=== PATIENT | male | born 1980 | race Caucasian/White ===

== ENCOUNTER 2017-03-12 17:17 | Emergency (ER) | payer BC ==
[~2017-03-12] VITALS: Ht 175.3 cm; Wt 143.1 kg
[~2017-03-12 17:17] MED LIST: NAPR500T PO
--- NOTE | 2017-03-12 17:37 | PHYS DOC ---
General Chief Complaint: SKIN RASH/ABSCESS Stated Complaint: REDDNESS Time Seen by MD: 17:34 Source: patient Exam Limitations: no limitations Problems: History of Present Illness Initial Comments Patient is 36 male to the ED with a rash. Patient states for the past 3 days he's been taking 2 new oopb-rok-xhkuxgl supplements one of which he knows is niacin. He states that he has had no difficulties past 3 days but today he has developed a whole body Itchy rash. He denies any cough or shortness of breath feeling of hoarseness or a lump in throat or sensation that his throat mouth or tongue or swelling. He has not noticed any dyspnea on exertion or wheeze but has simply come to the emergency department for relief from his itching. He has history of hypertension and denies any other ongoing medical problems. He denies immunosuppression and states he is normally healthy. Vital signs on arrival are unremarkable. Timing/Duration: 1 hour, getting worse Severity: severe Modifying Factors: improves with cold therapy, worse with medication Associated Symptoms: rash Allergies: Coded Allergies: No Known Drug Allergies (Unverified , 07/11/16) Past Medical History Medical History: hypertension Surgical History: noncontributory Social History Smoker: non-smoker Alcohol: none Drugs: none Review of Systems Constitutional: denies chills, denies fever, denies malaise (old who woke u) EENTM: denies ear pain, denies nose congestion ( the worst it is not coming back), denies throat swelling (vital tobacco on the images popped open of), denies mouth swelling Respiratory: denies cough (denies any other day and he said he passed and was given removal in the next), denies shortness of breath, denies stridor, denies wheezing Cardiovascular: denies chest pain, denies palpitations, denies syncope Gastrointestinal: denies abdominal pain, denies nausea, denies vomiting Musculoskeletal: denies back pain, denies joint swelling, denies neck pain Skin: see HPI Psychiatric/Neurological: denies headache, denies numbness, denies paresthesia (elevated ammonia [place] with your adenoids) Physical Exam General Appearance: WD/WN, mild distress Eyes: bilateral eye normal inspection, bilateral eye PERRL, bilateral eye EOMI Ear, Nose, Throat: hearing grossly normal, normal ENT inspection, normal pharynx (no soft tissue swelling noted) Neck: non-tender, supple Respiratory: lungs clear, normal breath sounds, no respiratory distress Cardiovascular: normal peripheral pulses, regular rate, rhythm Gastrointestinal: non tender, soft Back: no CVA tenderness, no vertebral tenderness Extremities: normal range of motion, non-tender, normal inspection 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 Currently his rash has nearly resolved she is feeling much better and he is requesting discharge she has a ride and is not driving. I discussed signs and symptoms to monitor urgent indications for return, as well as cessation of medications. I discussed the fact that niacin can give you similar symptoms by itself however those medications have to be considered an allergy until follow-up with his doctor. His questions were answered she expressed agreement and understanding with the treatment plan. As it is late pharmacies will be closing a 20 mg prednisone will be given by mouth prior to discharge. Departure Time of Disposition: 18:48 Disposition: 01 HOME, SELF-CARE Diagnosis: medication allergy Condition: IMPROVED Patient Instructions: Drug Allergy Additional Instructions: Discontinue the new ptlu-vrs-saemqmk medications. Off work through March 15, note given. Avoid strenuous activity and hot temperatures for optimal symptom control. Yhpp-rkp-exizzqy Pepcid 20 mg twice daily, Benadryl 25-50 mg every 6 hours while taking prednisone. No driving or operating machinery while taking Benadryl due to its sedation. Prescription: Prednisone Follow-up with your doctor on Tuesday if not better. Return to the ED with new or changing symptoms. REGINA WALSH DO Mar 12, 2017 17:37
[2017-03-12] MEDS ORDERED: IV NORMAL SALINE 1,000ML 1,000 ML IV SCH (18:00)
[2017-03-12] MEDS ORDERED: diphenhydrAMINE 50 MG/ML VIAL IV ONE (18:00)
[2017-03-12] MEDS ORDERED: methylPREDNISolone SOD SUCC PF 125 MG/2 ML VIAL. IV ONE (18:00)
[2017-03-12] MEDS ORDERED: FAMOTIDINE 20 MG/2 ML VIAL IVP ONE (18:00)
[2017-03-12 18:46] VITALS: BP 146/85
[2017-03-12] MEDS ORDERED: PRED20TA PO (18:46)
[2017-03-12] MEDS ORDERED: predniSONE 20 MG TABLET PO ONE (19:00)
== END 2017-03-12 19:04 | disposition home or self-care (01) ==
LOC: ER 17:17
DX: R21 Rash and other nonspecific skin eruption (principal); L29.9 Pruritus, unspecified; T46.7X5A Adverse effect of peripheral vasodilators, initial encounter; I10 Essential (primary) hypertension; Y92.89 Other specified places as the place of occurrence of the external cause
CPT/HCPCS: 96361; 96374; 96375; 99285; J1200; J2930; J7512; S0028; J7030

== ENCOUNTER → 2017-12-06 | Outpatient (CLI) | payer BC ==
[~2017-12-06] MED LIST changes: +NAPR-683 PO; -NAPR500T PO; +PRED20TA PO
== END | disposition home or self-care (01) ==
LOC: LAB 10:59
PROVIDERS: ATTEND General Practice
DX: R07.9 Chest pain, unspecified (principal); I10 Essential (primary) hypertension
CPT/HCPCS: 36415; 82553; 83615; 84484

== ENCOUNTER 2020-04-23 15:58 | Emergency (ER) | payer BC ==
[~2020-04-23] VITALS: Ht 175.3 cm; Wt 143.1 kg
[2020-04-23 16:34] LABS: BASO # 0.1 x10^3/uL (0.0-0.2); BASO % 1 % (0-3); EOS # 0.1 x10^3/uL (0.0-0.7); EOS % 2 % (0-3); HEMATOCRIT 45.6 % (39.0-53.0); HEMOGLOBIN 15.1 g/dL (13.0-17.5); LYMPH # 1.9 x10^3/uL (1.0-4.8); LYMPH % 25 % (24-48); MEAN CORPUSCULAR HEMOGLOBIN 30 pg (25-35); MEAN CORPUSCULAR HGB CONC 33 g/dL (31-37); MEAN CORPUSCULAR VOLUME 90 fL (79-100); MONO # 0.6 x10^3/uL (0.0-1.1); MONO % 8 % (0-9); NEUT % 65 % (31-73); PLATELET COUNT 392 x10^3/uL (140-400); RED BLOOD COUNT 5.06 x10^6/uL (4.30-5.70); RED CELL DISTRIBUTION WIDTH 13.7 % (11.5-14.5); WHITE BLOOD COUNT 7.8 x10^3/uL (4.0-11.0)
[2020-04-23 16:41] LABS: CALCIUM 9.2 mg/dL (8.5-10.1); CREATININE 2.7 mg/dL (0.7-1.3); GFR 26.4; POTASSIUM 4.5 mmol/L (3.5-5.1)
[2020-04-23 16:44] LABS: MAGNESIUM 2.2 mg/dL (1.8-2.4)
[2020-04-23] MEDS ORDERED: IV NORMAL SALINE 1,000ML 1,000 ML IV ONE ×2 (17:15)
--- NOTE | 2020-04-23 17:43 | PHYS DOC ---
Past History Past Medical History: Diabetes, Hypertension (SUJAAT GARCIA DO) Past Surgical History: Other (SUJATA GARCIA DO) Alcohol Use: None Drug Use: None (SUJATA GARCIA DO) General Adult EDM: Chief Complaint: OTHER COMPLAINTS HPI: HPI: 40 yo M PMH DM and HTN presents to the with c/o "cramping all over," worst in left upper extremity, upper thighs, lower abdomen and low back. Reports he's had these symptoms intermittently for the past 2 months[address] by Dr[address] Car and was told he needed a CT to evaluate his back pain, gallbladder and right kidney but due to insurance vs finances, unable to obtain CT until after 05/28/2020.. Was told his right kidney was weak but does not know the creatinine number. No anuria. 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 Reports "nausea, vomiting and loose stools, for years." 2 episodes of nbnb vomiting today and 2 loose stools. No known family history of autoimmune disorders, kidney disease or rheumatologic disease. Denies any aggressive/intensive new physical activity or exercise. Reports drinking enough water daily. No h/o alcohol, IVDU, or illicit drugs. (SUJATA GARCIA DO) Review of Systems: Review of Systems: Constitutional: Denies fever or chills Eyes: Denies change in visual acuity HENT: Denies nasal congestion or sore throat or hemoptysis Respiratory: Denies cough or shortness of breath Cardiovascular: Denies chest pain or edema GI: Denies melena, hematochezia, hematemesis : Denies dysuria or hematuria or urethral discharge Musculoskeletal: Denies back pain or joint pain Integument: Denies rash Neurologic: Denies headache, focal weakness or sensory changes Endocrine: Denies polyuria or polydipsia Lymphatic: Denies swollen glands Psychiatric: Denies depression or anxiety (SUJATA GARCIA DO) Current Medications: Current Meds: Current Medications Medications (Trade) Dose Ordered Sig/Bertin Start Time Stop Time Status Last Admin Dose Admin Sodium Chloride 1,000 ml @ 1,000 mls/hr 1X ONCE 04/23/20 17:15 04/23/20 18:14 (SUJATA GARCIA DO) Allergies: Allergies: Allergies Coded Allergies Type Severity Reaction Last Updated Verified niacin Allergy Intermediate RASH/ITCHING 12/31/18 Yes ([facility]) Physical Exam: PE: Constitutional: no acute distress, non-toxic appearance, obese HENT: Normocephalic, atraumatic, Eyes: EOMI, conjunctiva normal, no discharge. Neck: Normal range of motion, supple, Cardiovascular: S1/2 present, regular rhythm Lungs & Thorax: Speaking in full sentences, bilateral equal chest rise, no tachypnea or increased work of breathing Abdomen: soft, no tenderness, Skin: Warm, dry, no erythema, no rash. [] Back: No tenderness, no CVA tenderness. [] Extremities: No tenderness, no cyanosis, no edema Neurologic: Alert and oriented X 3, normal motor function, normal sensory functi on, no focal deficits noted. [] Psychologic: Affect normal, judgement normal, mood normal. [] ([facility]) Current Patient Data: Labs: Laboratory Tests Test 04/23/20 16:14 White Blood Count 7.8 x10^3/uL (4.0-11.0) Red Blood Count 5.06 x10^6/uL (4.30-5.70) Hemoglobin 15.1 g/dL (13.0-17.5) Hematocrit 45.6 % (39.0-53.0) Mean Corpuscular Volume 90 fL (79-100) Mean Corpuscular Hemoglobin 30 pg (25-35) Mean Corpuscular Hemoglobin Concent 33 g/dL (31-37) Red Cell Distribution Width 13.7 % (11.5-14.5) Platelet Count 392 x10^3/uL (140-400) Neutrophils (%) (Auto) 65 % (31-73) Lymphocytes (%) (Auto) 25 % (24-48) Monocytes (%) (Auto) 8 % (0-9) Eosinophils (%) (Auto) 2 % (0-3) Basophils (%) (Auto) 1 % (0-3) Neutrophils # (Auto) 5.0 x10^3uL (1.8-7.7) Lymphocytes # (Auto) 1.9 x10^3/uL (1.0-4.8) Monocytes # (Auto) 0.6 x10^3/uL (0.0-1.1) Eosinophils # (Auto) 0.1 x10^3/uL (0.0-0.7) Basophils # (Auto) 0.1 x10^3/uL (0.0-0.2) Sodium Level 132 mmol/L (136-145) L Potassium Level 4.5 mmol/L (3.5-5.1) Chloride Level 97 mmol/L (98-107) L Carbon Dioxide Level 22 mmol/L (21-32) Anion Gap 13 (6-14) Blood Urea Nitrogen 34 mg/dL (8-26) H Creatinine 2.7 mg/dL (0.7-1.3) H Estimated GFR (Cockcroft-Gault) 26.4 Glucose Level 143 mg/dL (70-99) H Calcium Level 9.2 mg/dL (8.5-10.1) Magnesium Level 2.2 mg/dL (1.8-2.4) Creatine Kinase 356 U/L (39-308) H Vital Signs: Vital Signs Date Time Temp Pulse Resp B/P (MAP) Pulse Ox O2 Delivery O2 Flow Rate FiO2 04/23/20 16:01 98.4 99 16 123/89 (100) 96 Room Air (SUJATA GARCIA DO) EKG: EKG: [] (SUJATA GARCIA DO) Radiology/Procedures: Radiology/Procedures: [] (SUJATA GARCIA DO) Radiology/Procedures: [place] [address] IMAGING REPORT Signed PATIENT: RAGHU BRANCH ACCOUNT: [id number] : 1980 LOCATION: ER AGE: 40 SEX: M EXAM STATUS: REG ER ORD. PHYSICIAN: SUJATA GARCIA DO REASON: right flank pain, kedar PROCEDURE: CT ABDOMEN PELVIS WO CONTRAST Exam: CT of abdomen and pelvis without contrast INDICATION: Right flank pain TECHNIQUE: Sequential axial images through the abdomen and pelvis obtained without IV contrast. Sagittal and coronal reformatted images were reconstructed from the axial data and reviewed. Comparisons: None FINDINGS: Heart size is normal. No pericardial effusion. Visualized lung bases are clear. No pleural effusion. Diffuse hepatic steatosis. Spleen, pancreas, gallbladder and adrenals are unremarkable. No perinephric inflammation or hydronephrosis. There are nonobstructing right renal calculi noted. No ureteral calculi are identified. Bladder is partially distended and not well evaluated. Prostate is not enlarged. Large and small bowel are unremarkable. Appendix is normal. No free abdominal air or fluid. No obstruction. Abdominal aorta has a normal course and caliber. No enlarged intra-abdominal lymph nodes are identified. No suspicious osseous lesions or acute fractures. IMPRESSION: 1. Nonobstructing right renal calculi. No ureteral calculi or evidence for obstructive uropathy. 2. Diffuse hepatic steatosis. Exposure: One or more of the following in the visualized dose reduction techniques were utilized for this examination: 1. Automated exposure control 2. Adjustment of the MA and/or KV according to patient size 3. Use of iterative of reconstructive technique Electronically signed by: Josh Harrell MD (04/23/2020 5:41 PM) [facility] DICTATED AND SIGNED BY: JOSH HARRELL MD DATE: 04/23/20 174 CC: SIMONE LOPEZ MD; SUJATA GARCIA DO ~MTH0 0 (TAYLER VENTURA MD) Heart Score: Risk Factors: Risk Factors: DM, Current or recent (<one month) smoker, HTN, HLP, family history of CAD, obesity. Risk Scores: Score 0 - 3: 2.5% MACE over next 6 weeks - Discharge Home Score 4 - 6: 20.3% MACE over next 6 weeks - Admit for Clinical Observation Score 7 - 10: 72.7% MACE over next 6 weeks - Early Invasive Strategies (SUJATA GARCIA DO) Course & Med Decision Making: Course & Med Decision Making Pertinent Labs and Imaging studies reviewed. (See chart for details) Labs concerning for KEDAR. CT abd/pelvis and u/a pending to evaluate etiology. Due to shift change patient was signed out to Dr. Ventura, oncoming physician for further evaluation and disposition. (SUJATA GARCIA DO) Course & Med Decision Making dSee Dr. Bui chart for details. Pt. reports resolution of symptoms at 2100 hrs. requesting discharge home. Pt. will follow up with Dr. Lopez. Push fluids, continue diabetic management. Practice self isolation. Wear a mask that covers nose and mouth at all times. Return if any concerns. Impression: 1. Dehydration - Elevated BUN/Crea 34/2.7 ( pt. required 2 liters to get urine) 2. DM 143 3. Accelerated HTN 4. Muscle Cramps (TAYLER VENTURA MD) Dragon Disclaimer: Dragon Disclaimer: This electronic medical record was generated, in whole or in part, using a voice recognition dictation system. (SUJATA GARCIA DO) Departure Departure: Impression: Primary Impression: KEDAR (acute kidney injury) Referrals: SIMONE LOPEZ MD (PCP) Dragon Disclaimer This chart was dictated in whole or in part using Voice Recognition software in a busy, high-work load, and often noisy Emergency Department environment. It may contain unintended and wholly unrecognized errors or omissions. (TAYLER VENTURA MD) Dragon Disclaimer This chart was dictated in whole or in part using Voice Recognition software in a busy, high-work load, and often noisy Emergency Department environment. It may contain unintended and wholly unrecognized errors or omissions. (TAYLER VENTURA MD) SUJATA GARCIA DO Apr 23, 2020 17:43 TAYLER VENTURA MD Apr 23, 2020 19:42
[2020-04-23 20:35] LABS: BARBITURATES NEG (NEG); BENZODIAZEPINES NEG (NEG); CANNABINOIDS NEG (NEG); COCAINE NEG (NEG); METHADONE NEG (NEG); OPIATES POS (NEG); PHENCYCLIDINE NEG (NEG)
[2020-04-23 20:37] LABS: AMORPHOUS SEDIMENT,UR PRESENT /HPF; BACTERIA,URINE 0 /HPF (0-FEW); BILIRUBIN,URINE NEG (NEG); CLARITY,URINE CLEAR; COLOR,URINE STRAW; GLUCOSE,URINE NEG (NEG); NITRITE,URINE NEG (NEG); RBC,URINE 0 /HPF (0-2); SQUAMOUS EPITHELIAL CELL,UR OCC /LPF; UROBILINOGEN,URINE 0.2 mg/dL (0.2 mg/dL); WBC,URINE 0 /HPF (0-4)
[2020-04-23 20:39] LABS: AMPHETAMINE/METHAMPHETAMINE NEG (NEG)
[2020-04-23 21:24] VITALS: BP 171/80
[2020-04-24 14:12] LABS: UR POTASSIUM 56.2 mmol/L (Not Estab.)
== END 2020-04-23 21:24 | disposition home or self-care (01) ==
LOC: ER 15:58
DX: N17.9 Acute kidney failure, unspecified (principal); E86.0 Dehydration; E11.9 Type 2 diabetes mellitus without complications; R79.89 Other specified abnormal findings of blood chemistry; I10 Essential (primary) hypertension; R25.2 Cramp and spasm; Z88.1 Allergy status to other antibiotic agents
CPT/HCPCS: 36415; 74176; 80048; 80307; 81001; 82436; 82550; 83735; 84100; 84133; 84300; 85025; 96360; 99284; J7030

== ENCOUNTER 2020-07-03 13:36 | Emergency (ER) | payer BC ==
[~2020-07-03] VITALS: Ht 175.3 cm; Wt 146.0 kg
--- NOTE | 2020-07-03 14:08 | EKG ---
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
--- NOTE | 2020-07-03 14:10 | PHYS DOC ---
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 Patient states he began to have pain in the left side of his chest that radiated to the left side of his throat, his left shoulder and down to his left elbow. Patient reports of onset of the discomfort he became diaphoretic. He denies any nausea, shortness of breath, numbness, tingling, or weakness. Patient denies any cough, body aches, nausea, or vomiting. Patient reports he has had intermittent diarrhea for the last 2 weeks with intermittent lower abdominal cramping. He reports that his abdominal cramping is not relieved by having diarrhea. He currently denies chest pain but reports that he still continues to have pain in the left side of his neck and his left shoulder. Patient reports a history of high cholesterol, diabetes, and high blood pressure. He currently rates his discomfort a 2 out of 10 on the pain scale and describes it as a cramping sensation. He denies any alleviating or exacerbating factors. Review of Systems: Review of Systems: Complete ROS is negative unless otherwise noted in HPI. Allergies: Allergies: Allergies Coded Allergies Type Severity Reaction Last Updated Verified niacin Allergy Intermediate RASH/ITCHING 05/15/18 Yes Physical Exam: PE: See Above Constitutional: Well developed, well nourished, no acute distress, non-toxic appearance, morbidly obese, anxious. [] HENT: Normocephalic, atraumatic, bilateral external ears normal, nose normal. [] Eyes: PERRLA, EOMI, conjunctiva normal, no discharge. [] Neck: Normal range of motion, no stridor. [] Cardiovascular:Heart rate regular rhythm, no edema Lungs & Thorax: Respirations even and unlabored, no retractions, no respiratory distress, speaking full sentences Abdomen: soft, no tenderness, no palpable mass, no pulsatile mass Skin: Warm, dry, no erythema, no rash. [] Extremities: Left shoulder: no tenderness palpation, cap refill less than 2 seconds, no cyanosis, ROM intact, no edema. [] Neurologic: Alert and oriented X 3, normal motor, normal sensory, no focal deficits noted. [] Psychologic: Affect anxious, judgement normal, mood normal. [] Current Patient Data: Vital Signs: Vital Signs Date Time Temp Pulse Resp B/P (MAP) Pulse Ox O2 Delivery O2 Flow Rate FiO2 07/03/20 13:36 98.0 98 20 142/95 (111) 98 Room Air EKG: EK-sinus rhythm, rate 96, no STEMI, normal ECG, read by Dr. Serna [] 1603-sinus rhythm, rate 93, no STEMI, normal ECG, no changes, read by Dr. Serna Radiology/Procedures: Radiology/Procedures: PROCEDURE: CHEST AP ONLY EXAM: CHEST 1 VIEW History: Chest pain COMPARISON: 07/11/2016 TECHNIQUE: Single portable radiograph of the chest FINDINGS: Mild cardiomegaly. The lungs are clear bilaterally. The costophrenic sulci are clear and well demarcated. IMPRESSION: No radiographic evidence of an acute cardiopulmonary process. Electronically signed by: Farhat Chacon MD (07/03/2020 2:16 PM) [id number][] Heart Score: HEART Score for Chest Pain: HEART Score for Chest Pain Response (Comments) Value History Moderately Suspicious 1 ECG Normal 0 Age < 45 0 Risk Factors >3 Risk Factors or Hx CAD 2 Troponin < Normal Limit 0 Total 3 Risk Factors: Risk Factors: DM, Current or recent (<one month) smoker, HTN, HLP, family history of CAD, obesity. Risk Scores: Score 0 - 3: 2.5% MACE over next 6 weeks - Discharge Home Score 4 - 6: 20.3% MACE over next 6 weeks - Admit for Clinical Observation Score 7 - 10: 72.7% MACE over next 6 weeks - Early Invasive Strategies Course & Med Decision Making: Course & Med Decision Making Pertinent Labs and Imaging studies reviewed. (See chart for details) 40-year-old male presents to the emergency department with complaints of chest pain that radiated to his throat and left shoulder, diarrhea, and lower abdominal pain. Work-up included EKG, chest x-ray, labs, monitoring, urine 24 mg of aspirin, and a liter normal saline. Patient's vital signs are stable throughout his emergency department stay. On exam patient denied any abdominal pain. His chest pain was a 2 out of 10 on exam and resolved shortly after his arrival. Initial EKG was normal sinus no acute changes, his initial troponin was less than 0.017, 2-hour repeat EKG revealed no changes, troponin remained less than 0.017. CBC was unremarkable, CMP revealed elevated ALT of 69, it was otherwise unremarkable; CKMB 7.2, CK of 310 Patient's heart score was a 3. Chest x-ray was unremarkable. I advised the patient of these findings. Provided him with diet instructions for diarrhea. Instructed the patient to avoid taking an antidiarrheal. I encouraged him to follow the diet instructions and to follow-up with his primary care doctor in the next 1 to 2 days, return to the ER for symptoms worsen or fever develop. The patient verbalized an understanding of home care, medications, follow-up, and return to ED instructions and was in agreement with the plan of care. [] Dragon Disclaimer: Dragon Disclaimer: This electronic medical record was generated, in whole or in part, using a voice recognition dictation system. Departure Departure: Impression: Primary Impression: Diarrhea Qualified Codes: R19.7 - Diarrhea, unspecified Additional Impression: Chest pain in adult Disposition: 01 DC HOME SELF CARE/HOMELESS Condition: STABLE Referrals: SIMONE LOPEZ MD (PCP) Patient Instructions: Chest Pain (Nonspecific), Evpi-kv-Hwhk, Diarrhea, Vnip-vl-Agop, Diet for Diarrhea, Adult Additional Instructions: Follow the diet instructions provided. Follow-up with your primary care doctor in the next 1 to 2 days for reevaluation, return to the ER if your symptoms worsen or if fever develops. REINA SORIA APRN Jul 03, 2020 14:10
[2020-07-03] MEDS ORDERED: ASPIRIN CHEWABLE 81 MG TABLET. PO ONE (14:15)
[2020-07-03] MEDS ORDERED: IV NORMAL SALINE 1,000ML 1,000 ML IV ONE (14:15)
--- NOTE | 2020-07-03 14:18 | RAD ---
EXAM: CHEST 1 VIEW History: Chest pain COMPARISON: 07/11/2016 TECHNIQUE: Single portable radiograph of the chest FINDINGS: Mild cardiomegaly. The lungs are clear bilaterally. The costophrenic sulci are clear and w ell demarcated. IMPRESSION: No radiographic evidence of an acute cardiopulmonary process. Electronically signed by: Farhat Chacon MD (07/03/2020 2:16 PM) [id number]
[2020-07-03 14:33] LABS: BASO % 1 % (0-3); EOS # 0.1 x10^3/uL (0.0-0.7); EOS % 2 % (0-3); HEMATOCRIT 45.8 % (39.0-53.0); HEMOGLOBIN 15.1 g/dL (13.0-17.5); LYMPH # 1.5 x10^3/uL (1.0-4.8); LYMPH % 23 % (24-48); MEAN CORPUSCULAR HEMOGLOBIN 30 pg (25-35); MEAN CORPUSCULAR HGB CONC 33 g/dL (31-37); MEAN CORPUSCULAR VOLUME 90 fL (79-100); MONO # 0.5 x10^3/uL (0.0-1.1); MONO % 8 % (0-9); NEUT # 4.4 x10^3uL (1.8-7.7); NEUT % 67 % (31-73); PLATELET COUNT 335 x10^3/uL (140-400); RED BLOOD COUNT 5.08 x10^6/uL (4.30-5.70); RED CELL DISTRIBUTION WIDTH 13.4 % (11.5-14.5); WHITE BLOOD COUNT 6.5 x10^3/uL (4.0-11.0)
[2020-07-03] MEDS ORDERED: DIPH,PERTUSS(ACELL),TET VAC/PF 0.5 ML SYRINGE. VAX IM ONE (14:45)
[2020-07-03 14:49] LABS: CALCIUM 9.5 mg/dL (8.5-10.1); GFR 83.2; POTASSIUM 4.9 mmol/L (3.5-5.1)
[2020-07-03 15:17] LABS: ALBUMIN 4.2 g/dL (3.4-5.0); ALBUMIN/GLOBULIN RATIO 1.2 (1.0-1.7); MAGNESIUM 2.1 mg/dL (1.8-2.4); TOTAL BILIRUBIN 0.3 mg/dL (0.2-1.0); TOTAL PROTEIN 7.8 g/dL (6.4-8.2)
--- NOTE | 2020-07-03 16:34 | EKG ---
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
[2020-07-03 16:42] VITALS: BP 129/88
[2020-07-03] MEDS ORDERED: LIDO:MAALOX 1:1 20 ML SINGLE DOSE. PO ONE (16:45)
== END 2020-07-03 16:55 | disposition home or self-care (01) ==
LOC: ER 13:36
DX: R07.89 Other chest pain (principal); R19.7 Diarrhea, unspecified; M54.2 Cervicalgia; M25.512 Pain in left shoulder; R10.30 Lower abdominal pain, unspecified; E11.9 Type 2 diabetes mellitus without complications; K21.9 Gastro-esophageal reflux disease without esophagitis; E78.00 Pure hypercholesterolemia, unspecified; I10 Essential (primary) hypertension; Z88.1 Allergy status to other antibiotic agents
CPT/HCPCS: 36415; 71045; 80053; 82553; 83690; 83735; 84484; 85025; 85379; 93005; 96360; 99285; J7030

== ENCOUNTER → 2020-12-08 | Outpatient (CLI) | payer BC ==
--- NOTE | 2020-12-08 11:43 | RAD ---
Testicular ultrasound History: Reason: RT TESTICLE/HIP PAIN / Comparison: None. Technique: Multiple grayscale, color flow Doppler and Doppler spectral analysis images of the scrotum are obtained. Findings: Per technologist both testicles are positioned in the groin, likely in the inguinal canal. Right testicle measures 5.1 x 3.3 x 2.4 cm. Right testicle demonstrates normal parenchymal echogenic ity. The right epididymis is not well visualized. Left testicle measures 5 x 3.1 x 2.4 cm. Left testicle demonstrates normal parenchymal echogenicity . The left epididymis is not well-visualized. There is no hydrocele or varicocele. Scrotal hyperemia or swelling are not seen. Low-resistance arterial flow and venous flow is demonstrated in the right testicle. Arterial waveform of the left testicle is less well seen. Venous flow is noted. 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 No evidence of torsion. Electronically signed by: Petr Russell MD (12/08/2020 11:40 AM) [id number]
== END ==
LOC: US 09:40
PROVIDERS: ATTEND Family Medicine
DX: Q53.20 Undescended testicle, unspecified, bilateral (principal)
CPT/HCPCS: 76870